=== PATIENT | female | born 1980 | race African-American/Black ===

== ENCOUNTER 2018-04-30 18:43 | Emergency (ER) | payer OTHER ==
[~2018-04-30] VITALS: Ht 170.2 cm; Wt 83.5 kg
[2018-04-30] MEDS ORDERED: ALBUTEROL SULF 0.083% NEB SOLN 3 ML NEB NEB STA (19:06)
[2018-04-30] MEDS ORDERED: ACETAMINOPHEN 325 MG TAB PO ONE (19:15)
[2018-04-30] MEDS ORDERED: MEDROL4 MG PO (19:53)
[2018-04-30] MEDS ORDERED: BROMFED DM COU118 ML PO (19:53)
[2018-04-30] MEDS ORDERED: TESSALON PERLE100 MG PO (19:53)
== END 2018-04-30 20:23 | disposition home or self-care (01) ==
LOC: FSED 18:43
DX: R05 Cough (principal); R06.00 Dyspnea, unspecified; J20.8 Acute bronchitis due to other specified organisms
CPT/HCPCS: 87400; 99282

== ENCOUNTER 2018-06-17 21:08 | Emergency (ER) | payer OTHER ==
[~2018-06-17] VITALS: Ht 170.2 cm; Wt 83.5 kg
[~2018-06-17 21:08] MED LIST: BROMFED DM COU118 ML PO; MEDROL4 MG PO; TESSALON PERLE100 MG PO
--- OUTSIDE RECORDS SUMMARY | 2018-06-17 21:10 | XMS REPORT ---
Author Author [facility] Address Unknown Phone Unavailable Care Team Providers Care Supply Chain Assistant Name Role Phone Unavailable Unavailable Problems This patient has no known problems. Allergies, Adverse Reactions, Alerts This patient has no known allergies or adverse reactions. Medications This patient has no known medications. Results Test Description Test Time Test Comments Text Results Atomic Results Result Comments US PELVIC (TRANSVAGINAL ONLY) CLINICAL INDICATION: N92.0 Excessive and frequent menstruation with regular [id number] Dysmenorrhea, [id number] Irregular menstruation, unspecifiedFINDINGS:COMPARISON STUDY: NoneTransabdomin al and transvaginal evaluation of the pelvis is performed.On transabdominal imaging, the uterus measures 8.9 cm in length and 6.4 x 5 point a cm in transverse dimension.On transvaginal scanning, there is homogeneous myometrial echotexture. Endometrial stripe is 0.2 cm in thickness. There is a questionable mildly hyper echoic abnormality within the endometrium measuring 5-6 mm in transverse dimension. This could represent a small endometrial polyp..The right ovary measures 4.8 x 3.9 x 2.1 cm. It has a volume of 21 ml. The left ovary measures 5.9 x 4.0-0.5 cm. It has a volume of 43 ml. It contains a 3.7 x 3.4 by 2.2 cm simple cyst. Follicles are noted bilaterally..There is no mass or fluid collection within the cul-de-sac.IMPRESSION:One. 3.7 cm simple left ovarian cyst.Two. Potential small endometrial polyp.
[2018-06-17] MEDS ORDERED: KETOROLAC TROMETHAMINE 30 MG/ML VIAL IV ONE (21:45)
[2018-06-17] MEDS ORDERED: ONDANSETRON HCL INJ 2 MG/ML VIAL IV ONE (21:45)
[2018-06-17] MEDS ORDERED: ACETAMINOPHEN 325 MG TAB PO ONE (21:45)
--- NOTE | 2018-06-17 22:21 | Diagnostic Imaging Report ---
CXR 2 VIEW - HOPD, Technique: CXR 2 VIEW - HOPD Comparison: None Clinical history: Chest pain DISCUSSION: Unremarkable appearance of the heart, mediastinum, lungs and pleural spaces. IMPRESSION: No acute abnormality Signed by: Dr Alona Paredes MD on 06/17/2018 10:17 PM
[2018-06-17] MEDS ORDERED: POTASSIUM CHLORIDE 20 MEQ TAB CR PO STA (22:34)
[2018-06-17 22:35] VITALS: BP 139/70
== END 2018-06-17 22:45 | disposition home or self-care (01) ==
LOC: FSED 21:08
DX: R07.89 Other chest pain (principal)
CPT/HCPCS: 71046; 80053; 81003; 81025; 82553; 84484; 85025; 85379; 93005; 99284; J1885; J2405

== ENCOUNTER 2020-06-21 11:44 | Emergency (ER) | payer OTHER ==
[~2020-06-21] VITALS: Ht 170.2 cm; Wt 83.5 kg
[2020-06-21] MEDS ORDERED: DIAZEPAM 5 MG TAB PO ONE (12:15)
[2020-06-21] MEDS ORDERED: DIAZEPAM 5 MG TAB ONE (12:28)
== END 2020-06-21 13:55 | disposition home or self-care (01) ==
LOC: ER 12:12
DX: R20.2 Paresthesia of skin (principal); M54.12 Radiculopathy, cervical region; R94.31 Abnormal electrocardiogram [ECG] [EKG]
CPT/HCPCS: 71045; 72125; 93005; 99283